=== PATIENT | male | born 1970 | race Caucasian/White ===

== ENCOUNTER 2020-05-21 13:24 | Emergency (ER) | payer OTHER, SELFPAY ==
[2020-05-21 13:32] VITALS: BP 154/91; PULSE 73; RESP 18; TEMP 36.9; O2SAT 97; BMI 28.5
[2020-05-21 13:40] VITALS: BP 144/103; PULSE 70; RESP 20; TEMP 36.9; O2SAT 97; BMI 28.5
--- NOTE | 2020-05-21 14:23 | HMH.EDUTC ---
[facility] [place] Disposition Clinical Impression: Bronchitis Sinusitis Qualifiers: Sinusitis location: unspecified location Chronicity: unspecified Qualified Code(s): J32.9 - Chronic sinusitis, unspecified Disposition: Home, Self-Care Condition on Discharge: Good Instructions: Sinusitis, Sinus Headache, Acute Bronchitis, DI for Sinusitis, Prednisone, Azithromycin Additional Instructions: ? Start antibiotic today. Be sure to complete entire prescription even if feeling better ? Monitor temp. Tylenol every 4 hours as needed and / or ibuprofen every 6 hours as needed ( As long as your primary care physician has told you that it ok to take both. For fever/aches/pains ER if no less than 101 despite Tylenol or Motrin ? Humidifier/vaporizer or hot steamy shower ? Inhaler every 4-6 hours as needed like we discussed. If unsure how to use it, ask pharmacist to demonstrate how. Should help open airways and improve cough, wheezing, and shortness of breath ? Mucinex during the day for your cough and cough suppressant only at night. Be sure to drink lots of water. Insurance may not cover a prescriptions for mucinex. Might be cheaper to get 400mg tablets and take 2 tablet in the morning, mid-day and evening with lots of water. Start steroid today. Helps with inflammation therefore, cough and wheezing. Follow directions on the package. Reviewed side effects. Patient reports taking them before. Follow up IMMEDIATELY for new or worsening of symptoms OR no noticeable improvement over the next 48-72 hours. 911 immediately for any life threatening symptoms such as chest pain or difficulty breathing Prescriptions: Albuterol Sulfate [Proventil-HFA 90mcg/puff Inh] 1 - 2 puffs IH Q4HP PRN #1 inh PRN Reason: Shortness Of Breath Transmission Status: Received by [facility] #[id number] methylPREDNISolone [Medrol 4mg tab] 4 mg PO DIRECTED #21 tab Transmission Status: Received by [facility] #[id number] Azithromycin [Z-Dakota 250mg Tab] 250 mg PO DIRECTED #6 tab Transmission Status: Received by [facility] #[id number] Referrals: Cyn Boles [Primary Care Provider] - As needed Forms: Work/School Release Medical Decision Making - Elton Inquiry Pt receiving controlled substance: No Elton was queried for this patient: No Vital Signs: 05/21/20 13:32 05/21/20 13:40 05/21/20 15:03 Temperature 98.4 F 98.4 F 98.4 F Temperature Source Oral Oral Pulse Rate 70 Pulse Rate [Radial] 73 70 Respiratory Rate 18 20 20 Blood Pressure 144/103 H Blood Pressure [Right Arm] 154/91 H 144/103 H Blood Pressure Mean [Right Arm] 112 116 Blood Pressure Source [Right Arm] Automatic Cuff Automatic Cuff Blood Pressure Position [Right Arm] Sitting Sitting 02 Sat by Pulse Oximetry 97 97 Oxygen Delivery Method Room Air Room Air - Lab Data Lab Results 05/21/20 14:30: Strep Scn Rapid Clinic Negative Orders (Tests/Meds): ORDERS Category Date Time Status Strep Screen Confirmation Stat Micro 05/21/20 14:30 Received - Radiology Data #1 Image(s): Chest Image Reviewed: Yes I reviewed the patient's radiology image Preliminary Findings: Normal/NAD [facility] [place] HPI - General Stated complaint: soa Time Seen by Provider: 05/21/20 14:24 Mode of Arrival: Ambulatory Source of Information: Patient Limitations: No Limitations Description of Symptoms (Recalled from Triage Doc. by RN): PATENT REPORTS HE HAS BEEN CONGESTED AND BURNING IN CHEST X 1 MONTH. HE STATES THE BURNING IS WORSE WHEN HE IS OUT IN THE COLD HEENT Symptoms (Recalled from RN notes): No Resp Symptoms (Recalled from RN notes): Yes Skin Symptoms (Recalled from RN notes): No MS Symptoms (Recalled from RN notes): No Functional Status (Recalled from RN notes): WNL - History of Present Illness Provider Complaint: Patient state that he has been having burning like throat irritation in his throat and feeling like at times when he coughs he has a burning like sensation States that at times he can c
--- NOTE | 2020-05-21 14:24 | XR_ITS ---
PROCEDURE: XR CHEST 2V CLINICAL HISTORY: cough COMPARISON: CT [facility] CT CHEST W/O CONTRAST from 07/16/2014 FINDINGS: The cardiomediastinal silhouette and pulmonary vascularity are within normal limits. The lungs are clear without infiltrates, suspicious nodules, or pleural effusions. No acute bony abnormalities. IMPRESSION: No acute findings. Dictated by: Da Tee MD 05/21/2020 14:45 Da Tee MD in OV 05/21/2020 14:45
[2020-05-21 14:42] LABS: UTC Strep Screen (Rapid) Negative (Negative)
[2020-05-21 15:03] VITALS: BP 144/103; PULSE 70; RESP 20; TEMP 36.9; O2SAT 97
== END 2020-05-21 15:05 | disposition home or self-care (01) ==
PROVIDERS: Emergency Provider Nurse Practitioner; PCP Family Medicine
DX: J20.9 Acute bronchitis, unspecified (principal); J32.9 Chronic sinusitis, unspecified
CPT/HCPCS: 71046; 87880; 99202

== ENCOUNTER 2024-04-26 02:16 | Emergency (ER) | payer SELFPAY ==
--- NOTE | 2024-04-26 02:31 | XR_ITS ---
PROCEDURE INFORMATION: Exam: XR Right Hand Exam date and time: 04/26/2024 2:35 AM Age: 53 years old Clinical indication: Pain; Hand; Right; Additional info: Dog bite thenar eminence TECHNIQUE: Imaging protocol: Radiologic exam of the right hand. Views: 1 or 2 views. COMPARISON: No relevant prior studies available. FINDINGS: Bones/joints: Normal. Soft tissues: Normal. IMPRESSION: No acute findings.
[2024-04-26 02:32] VITALS: BP 148/92; PULSE 98; RESP 20; TEMP 36.7; O2SAT 99; BMI 28.0
--- NOTE | 2024-04-26 02:32 | ED_ITS ---
Discharge Plan Disposition Patient Disposition: Home, Self-Care Condition: Good Prescriptions Prescriptions: New amoxicillin-pot clavulanate 875-125 mg tablet 1 tab PO BID Qty: 14 0RF No Action azithromycin 250 MG tablet 250 mg PO DIRECTED Qty: 6 0RF Rx Instructions: Take two (2) tablets on day #1, then one (1) tablet day #2 thru #5 methylprednisolone 4 MG tablet 4 mg PO DIRECTED Qty: 21 0RF Rx Instructions: Take as directed on package instructions albuterol sulfate 200 PUFFS HFA aerosol inhaler 1 - 2 puffs IH Q4HP PRN (Reason: Shortness Of Breath) Qty: 1 0RF Referrals Follow up/Referrals: Provider,Referral, MD [Primary Care Provider] - See instructions Activity Restrictions/Add. Instructions Additional Instructions/Restrictions: You were evaluated in the ER and are appropriate for discharge at this time. Keep the wound clean and dry. The suture will dissolve on its own. You may get a hematoma, monitor for any dangerous symptoms as discussed. Take the prescribed antibiotics, do not skip doses, do not stop taking them early. Please make an appointment with your primary care doctor for reevaluation in 2 to 3 days. Return to the ER with new, worsening, or otherwise concerning symptoms. Clinical Impressions Clinical Impression: Dog bite Instructions Patient Instructions: Animal Bites Print Language Print Language: Romanian Discharge ED Provider: Saad Farias General Adult HPI General Chief complaint: Animal Bite Stated complaint: dog bite lower L leg, blood thinners, 04/25 1530 Time Seen by Provider: 04/26/24 02:20 History of Present Illness HPI narrative: 53-year-old male presents to the ER for complaints of dog bite to the left lower leg and right hand. Patient reports the bite happened around 3:30 PM, nearly 12 hours prior to arrival. Patient reports it was his dogs, he states they are fully vaccinated including rabies. Patient states his dogs got in a fight and he attempted to separate him. He sustained wound to the right hand as well as to the left leg. He states the left leg is the one he is concerned about because it continues to slowly ooze blood. He states he is clopidogrel from a heart problem. Patient was not evaluated for his wounds earlier. He was attempting to manage them at home. He states he has been applying pressure but it has continued to bleed. Patient is ambulatory, he states he has mild pain in the left calf. He also states he has some pain in the right thenar eminence where he sustained bites. He states the hand is not bleeding. He has full range of motion and sensation in the hand as well as distal to the leg wounds. Related Data Previous Rx's ?Medication ?Instructions ?Recorded albuterol sulfate 90 mcg/actuation 1 - 2 puffs IH Q4HP PRN Shortness 05/21/20 aerosol inhaler Of Breath #1 inh azithromycin 250 mg tablet 250 mg PO DIRECTED #6 tabs 05/21/20 methylprednisolone 4 mg tablet 4 mg PO DIRECTED #21 tabs 05/21/20 amoxicillin 875 mg-potassium 1 tab PO BID #14 tabs 04/26/24 clavulanate 125 mg tablet Allergies Allergy/AdvReac Type Severity Reaction Status Date / Time No Known Allergies Allergy Verified 05/21/20 14:02 [facility] Disclaimer: The information contained in this section may have been updated after the patient was seen, as this information can be updated by other users. Social History Smoking Status: Current every day smoker alcohol intake: never current occupational status: other Travel in the last 8 weeks: None ROS Obtained: Yes Systems reviewed as appropriate & no additional complaints except as documented ROS per HPI Physical Exam General General appearance: alert and in no apparent distress Head Head exam: atraumatic and normocephalic Eye Eye exam: Present PERRL and EOMI ENT ENT exam: Present mucous membranes moist Neck Neck exam: Present normal inspection and full ROM Chest Chest inspection: Present symmetric chest wall rise Respiratory Respiratory exam: Present normal lung sounds bilaterally; Absent respiratory distress, wheezes or stridor Cardiovascular Cardiovascular exam: Present regular rate and normal rhythm Abdominal Exam Abdominal exam: Present soft; Absent distention or tenderness Extremities Exam Extremities exam: Present full ROM, tenderness (Tenderness to palpation of the right thenar eminence as well as the left calf associated with dog bite wounds, neurovascularly intact distally, minor swelling present in the right thenar eminence), normal capillary refill and other (3 puncture wounds present on the right hand, thenar eminence and webspace, neurovascularly intact distally, hemostatic. 6 puncture wounds present on the posterior left calf, no tearing, 1 wound has constant slow venous oozing. No hematoma. Neurovascular intact distally.); Absent joint swelling Neurological Exam Neurological exam: Present alert, oriented X3, CN II-XII intact and normal gait; Absent motor sensory deficit Psychiatric Psychiatric exam: Present normal affect and normal mood Skin Skin exam: Present warm and dry Medical Decision Making Medical Records Screening: Per USPSTF and CDC recommendations, given the prevalence of disease in our region, it is our hospital?s policy to screen for HIV and viral Hepatitis for all patients aged 18 and over and those with ongoing risk factors. Elton Inquiry Pt receiving controlled substance: No Vital Signs: 04/26/24 02:32 Temperature 98.0 F Temperature Source Oral Pulse Rate [Apical] 98 H Respiratory Rate 20 Blood Pressure [Right Arm] 148/92 H Blood Pressure Mean [Right Arm] 110 Blood Pressure Source [Right Arm] Manual Cuff/ Auscultation Blood Pressure Position [Right Arm] Supine 02 Sat by Pulse Oximetry 99 Oxygen Delivery Method Room Air Lab Data Lab Results 04/26/24 02:55: WBC 10.6, RBC 4.55 L, Hgb 14.6, Hct 42.5, MCV 93.3, MCH 32.2 H, MCHC 34.5, RDW 12.6, Plt Count 183, MPV 7.7, Neut % (Auto) 69.2, Lymph % (Auto) 21.5, [place] % (Auto) 6.6, Eos % (Auto) 1.6, Baso % (Auto) 1.1, Neut # (Auto) 7.3, Lymph # (Auto) 2.3, [place] # (Auto) 0.7, Eos # (Auto) 0.2, Baso # (Auto) 0.1, PT 10.8, INR 0.96, APTT 27.7 04/26/24 02:55 Orders (Tests/Meds): ED MEDICATIONS Discontinued Medications Generic Name Dose Route Start Last Admin Trade Name Raymondq PRN Reason Stop Dose Admin Acetaminophen 1,000 mg 04/26/24 02:36 04/26/24 03:02 Acetaminophen 500mg Tab PO 04/26/24 02:37 1,000 mg ONCE ONE Administration Amoxicillin/Clavulanate Potassium 1 each 04/26/24 02:29 04/26/24 03:02 Amoxicillin/Clavulanate Potassium 875/125mg Tablet PO 04/26/24 02:30 1 each ONCE ONE Administration Tetanus/Reduced Diphtheria/Acell Pertussis 0.5 ml 04/26/24 02:39 04/26/24 03:03 Tet/Diphth/Pert-Adult 0.5ml Syringe IM 04/26/24 02:40 0.5 ml .ONCE ONE Administration ORDERS Category Date Time Status Fibula/tibia XR left 2 views [XR tibia fibula LT 2V] Exams 04/26/24 02:39 Taken Stat Hand XR right 2 views [XR hand RT 2V] Stat Exams 04/26/24 02:31 Taken CBC w/Auto Diff [Complete Blood Count Auto Diff] Stat Lab 04/26/24 02:55 Completed HIV (1&2) Antibody Rapid Stat Lab 04/26/24 02:55 Received Hep C Ab with Reflex to RNA Stat Lab 04/26/24 02:55 Received PT INR [Prothrombin Time INR] Stat Lab 04/26/24 02:55 Completed PTT [Activated Partial Thrombo Time] Stat Lab 04/26/24 02:55 Completed Medical Decision Narrative: In summary, this 53-year-old male presents to the emergency department today with dog bite to left calf and right hand. On initial evaluation patient is hemodynamically stable, afebrile, overall well-appearing, neurovascularly intact throughout, he has wounds on the left calf and right hand as described in physical exam, there is slow venous oozing from 1 wound on the left posterior calf. Differential diagnosis includes but is not limited to puncture wound, infection, I considered the possibility of foreign body, I considered rabies prophylaxis however patient reports the dogs he was bitten by are fully up-to-date on rabies vaccines. Patient does report he does not recall his last tetanus so this will be administered. Patient is on blood thinners and has continued slow venous oozing from the left calf so I did consider the possibility of coagulopathy, based on these concerns, I ordered basic serum labs and x-ray. Patient received Augmentin in the ER. X-ray personally interpreted does not demonstrate foreign body or fracture. See radiology read for final interpretation. Labs were personally reviewed and I do not appreciate coagulopathy, no anemia, no leukocytosis, normal platelets. Compressive dressing had been applied to the leg, after 30 minutes this was removed and there was still venous oozing. Typically I would not close any dog bites due to the risk of infection, however with patient on antiplatelet and having continued oozing despite being multiple hours after the injury and application of compressive dressing, I placed a single [id number] suture deep in the wound. Surface has been left open to allow for continued drainage. See procedure note for details. There was hemostasis achieved after this. Loose dressing applied. Patient is appropriate for discharge at this time. Augmentin was prescribed to the patient for infection prophylaxis. He was given instructions on wound care, antibiotics, expectations for bleeding, possible hematoma formation, I discussed danger signs and symptoms with him including numbness, tingling, or weakness. I also discussed follow-up instructions and strict return precautions for the ER. Patient indicated understanding to all verbal and written instructions and was discharged in stable condition. Procedures Risk/Benefits of Procedure(s) Were Explained: Yes (patient provided consent) Laceration Laceration 1: Site: lower extremity Side (If applicable): left Size (cm): 0.5 Description: other (Puncture) Depth: involves subcutaneous layer Local Anesthetic: lidocaine 1% and with epi Amount of anesthesia used (mL): 3 Pre-repair: wound explored and irrigated extensively Subcutaneous layer closed with: chromic gut Size: 4-0 Number of sutures: 1 Technique: other ([id number]) Critical Care Critical Care Time Critical Care Time: No
--- NOTE | 2024-04-26 02:39 | XR_ITS ---
PROCEDURE INFORMATION: Exam: XR Left Tibia and Fibula Exam date and time: 04/26/2024 2:35 AM Age: 53 years old Clinical indication: Pain; Lower leg; Left; Additional info: Dog bite calf TECHNIQUE: Imaging protocol: Radiologic exam of the left tibia and fibula. Views: 2 views. COMPARISON: No relevant prior studies available. FINDINGS: Bones/joints: Normal. Degenerative changes of the knee with narrowing of the mediolateral compartments. Soft tissues: Normal. IMPRESSION: No acute findings.
[2024-04-26] MEDS: ACETAMINOPHEN 500MG TAB 1000 MG PO (03:02)
[2024-04-26] MEDS: AMOXICILLIN/CLAVULANATE POTASSIUM 875/125MG TABLET 1 EACH PO (03:02)
[2024-04-26] MEDS: TET/DIPHTH/PERT-ADULT 0.5ML SYRINGE 0.5 ML IM (03:03)
[2024-04-26 03:08] LABS: Basophils # 0.1 K/mm3 (0-0.2); Basophils % 1.1 % (0.1-2.0); Eosinophils # 0.2 K/mm3 (0.0-0.4); Eosinophils % 1.6 % (0.1-12.0); Hematocrit 42.5 % (42.0-52.0); Hemoglobin 14.6 g/dL (14.1-18.0); Lymphocytes # 2.3 K/mm3 (0.7-4.5); Lymphocytes % 21.5 % (10-50); Mean Corpuscular HGB Conc 34.5 g/dL (31.8-35.4); Mean Corpuscular Hemoglobin 32.2 pg (27.0-31.2); Mean Corpuscular Volume 93.3 fl (80-94); Mean Platelet Volume 7.7 fl (7.4-10.4); Monocytes # 0.7 K/mm3 (0.1-1.0); Monocytes % 6.6 % (1.7-9.3); Neutrophils # 7.3 K/mm3 (1.8-7.8); Neutrophils % 69.2 % (37.0-80.0); Platelet Count 183 K/mm3 (142-424); Red Blood Count 4.55 M/mm3 (4.60-6.20); Red Cell Distribution Width 12.6 % (11.5-17.5); White Blood Count 10.6 K/mm3 (4.8-10.8)
[2024-04-26 03:15] LABS: INR 0.96 (0.9-1.1); Prothrombin Time 10.8 seconds (10.1-12.5)
[2024-04-26 03:24] LABS: Activated Partial Thrombo Time 27.7 seconds (22.8-30.6)
[2024-04-26] MEDS: LIDOCAINE 1% W/EPI 1:100,000 20ML VIAL IM (03:44)
[2024-04-26 03:45] LABS: HIV (1&2) Antibody Rapid NONREACTIVE (NONREACTIVE)
[2024-04-26 03:47] VITALS: BP 127/86; PULSE 57; RESP 18; TEMP 36.7; O2SAT 97
[2024-04-27 07:20] LABS: HCV Ab Non Reactive (Non Reactive)
== END 2024-04-26 03:50 | disposition home or self-care (01) ==
PROVIDERS: Emergency Provider Emergency Medicine
DX: S81.812A Laceration without foreign body, left lower leg, initial encounter (principal); M79.662 Pain in left lower leg; M79.641 Pain in right hand; Z23 Encounter for immunization; W54.0XXA Bitten by dog, initial encounter
CPT/HCPCS: 12001; 73120; 73590; 85025; 85610; 85730; 86803; 87389; 90471; 90715; 99283